=== PATIENT | female | born 1950 | race Two or more races ===

== ENCOUNTER 2017-08-06 09:47 | Outpatient (CLI) | payer OTHER ==
[~2017-08-06 09:47] MED LIST: ADVIL100 MG PO; MIRALAX12 EA PO; PERCOCET 10/3251 TAB PO; PNEU16DI2
== END 2017-08-06 09:54 | disposition home or self-care (01) ==
LOC: RAD 09:47
DX: M25.562 Pain in left knee (principal)

== ENCOUNTER → 2017-10-09 | Outpatient (CLI) | payer OTHER | END | disposition home or self-care (01) | LOC: RAD 11:46 | DX: J20.9 Acute bronchitis, unspecified (principal) ==

== ENCOUNTER 2018-06-04 08:48 | Outpatient (CLI) | payer OTHER | END 2018-06-04 09:06 | disposition home or self-care (01) | LOC: RAD 08:48 | DX: J20.9 Acute bronchitis, unspecified (principal); J10.08 Influenza due to other identified influenza virus with other specified pneumonia; B17.9 Acute viral hepatitis, unspecified ==

== ENCOUNTER 2018-09-22 08:56 | Outpatient (CLI) | payer OTHER | END 2018-09-22 09:16 | disposition home or self-care (01) | LOC: SONOGRAMA 08:56 | DX: R19.00 Intra-abdominal and pelvic swelling, mass and lump, unspecified site (principal) ==

== ENCOUNTER 2019-01-01 08:24 | Outpatient (CLI) | payer OTHER | END 2019-01-01 08:30 | disposition home or self-care (01) | LOC: SONOGRAMA 08:24 | DX: R10.84 Generalized abdominal pain (principal) ==

== ENCOUNTER 2019-07-01 07:02 | Outpatient (CLI) | payer OTHER | END 2019-07-01 15:48 | disposition home or self-care (01) | LOC: RAD 07:02 | DX: R07.89 Other chest pain (principal) ==

== ENCOUNTER 2019-11-04 12:52 | Outpatient (CLI) | payer OTHER | END 2019-11-04 12:54 | disposition home or self-care (01) | LOC: SONOGRAMA 12:52 | DX: R10.2 Pelvic and perineal pain (principal) ==

== ENCOUNTER 2021-11-18 12:40 | Outpatient (CLI) | payer OTHER | END 2021-11-18 12:55 | disposition home or self-care (01) | LOC: PPH VACUNA 12:40 | PROVIDERS: ATTEND Emergency Medicine Pediatric Emergency Medicine | DX: Z23 Encounter for immunization (principal) ==

== ENCOUNTER 2022-01-08 08:51 | Outpatient (CLI) | payer OTHER | END 2022-01-08 09:04 | disposition home or self-care (01) | LOC: RAD 08:51 | PROVIDERS: ATTEND Internal Medicine Hematology & Oncology | DX: S80.02XA Contusion of left knee, initial encounter (principal); S80.01XA Contusion of right knee, initial encounter; M17.0 Bilateral primary osteoarthritis of knee ==

== ENCOUNTER 2022-04-30 16:05 | Outpatient (CLI) | payer OTHER | END 2022-04-30 16:15 | disposition home or self-care (01) | LOC: PPH VACUNA 16:05 | PROVIDERS: ATTEND Emergency Medicine Pediatric Emergency Medicine | DX: Z23 Encounter for immunization (principal) ==

== ENCOUNTER 2022-11-10 16:25 | Emergency (ER) | payer OTHER ==
[~2022-11-10] VITALS: Ht 162.6 cm; Wt 72.6 kg
== END 2022-11-10 17:54 | disposition home or self-care (01) ==
LOC: ER 16:25
DX: S61.220A Laceration with foreign body of right index finger without damage to nail, initial encounter (principal); W26.8XXA Contact with other sharp object(s), not elsewhere classified, initial encounter; Y93.89 Activity, other specified; Y92.89 Other specified places as the place of occurrence of the external cause

== ENCOUNTER 2023-04-08 07:48 | Outpatient (CLI) | payer OTHER ==
[2023-04-08 08:45] LABS: HEMATOCRIT 38.7 % (36.0-45.00); HEMOGLOBIN 12.9 g/dL (12.0-15.00); MEAN CELL VOLUME 90.1 fL (80.00-100.00); MEAN CORPUSCULAR HEMOGLOBIN 30.1 pg (27.00-32.0); MEAN CORPUSCULAR HGB CONC 33.4 g/dl (32.0-36.0); PLATELET COUNT 195 K/uL (150-450); RED CELL DISTRIBUTION WIDTH 14.1 % (11.5-14.5)
[2023-04-08 09:29] LABS: ALBUMIN 3.5 gm/dL (3.4-5.0); BILIRUBIN TOTAL 0.82 mg/dL (0.3-1.2); CALCIUM 8.8 mg/dL (8.5-10.1); CREATININE SERUM 0.6 mg/dL (0.55-1.02); GFR 98.83; GLOBULINA 2.8 G/DL (2.4-3.5); POTASSIUM 4.1 mEq/L (3.5-5.1); TOTAL PROTEIN 6.3 gm/dL (6.4-8.2)
[2023-04-08 10:09] LABS: MYCOPLASMA PNEUMONIAE IGM REACTIVE (NO REACTIVE)
== END 2023-04-08 07:53 | disposition home or self-care (01) ==
LOC: LAB 07:48
DX: J22 Unspecified acute lower respiratory infection (principal)

== ENCOUNTER → 2023-05-28 09:43 | Outpatient (CLI) | payer OTHER ==
[2023-05-28 10:19] LABS: HEMATOCRIT 40.1 % (36.0-45.00); HEMOGLOBIN 13.4 g/dL (12.0-15.00); MEAN CELL VOLUME 89.7 fL (80.00-100.00); MEAN CORPUSCULAR HEMOGLOBIN 30.1 pg (27.00-32.0); MEAN CORPUSCULAR HGB CONC 33.6 g/dl (32.0-36.0); PLATELET COUNT 197 K/uL (150-450); RED BLOOD COUNT 4.47 M/uL (4.00-6.00)
[2023-05-28 11:16] LABS: MYCOPLASMA PNEUMONIAE IGM NON REACTIVE (NO REACTIVE)
== END | disposition home or self-care (01) ==
LOC: LAB 09:43
PROVIDERS: ATTEND Internal Medicine Hematology & Oncology
DX: J18.9 Pneumonia, unspecified organism (principal)

== ENCOUNTER → 2025-03-22 | Outpatient (CLI) | payer OTHER | END | disposition home or self-care (01) | LOC: RAD 11:25 | PROVIDERS: ATTEND Internal Medicine Hematology & Oncology | DX: S67.21XA Crushing injury of right hand, initial encounter (principal); S67.22XA Crushing injury of left hand, initial encounter ==